=== PATIENT | female | born 1965 | race Caucasian/White ===

== ENCOUNTER 2016-06-16 22:09 | Emergency (ER) | payer MEDICAID ==
[~2016-06-16] VITALS: Ht 154.9 cm; Wt 54.4 kg
[~2016-06-16 22:09] MED LIST: OMEP40CA37 PO
[2016-06-16] MEDS ORDERED: ACETAMINOPHEN ES 500 MG TABLET ONE (23:29)
[2016-06-16 23:43] VITALS: BP 121/66
== END 2016-06-16 23:44 | disposition home or self-care (01) ==
LOC: ER 22:11
DX: S46.812A Strain of other muscles, fascia and tendons at shoulder and upper arm level, left arm, initial encounter (principal); S46.811A Strain of other muscles, fascia and tendons at shoulder and upper arm level, right arm, initial encounter; S16.1XXA Strain of muscle, fascia and tendon at neck level, initial encounter; K21.9 Gastro-esophageal reflux disease without esophagitis; F32.9 Major depressive disorder, single episode, unspecified; F41.9 Anxiety disorder, unspecified; Z90.710 Acquired absence of both cervix and uterus; V49.60XA Unspecified car occupant injured in collision with unspecified motor vehicles in traffic accident, initial encounter; Y93.89 Activity, other specified; Y92.413 State road as the place of occurrence of the external cause; Y99.8 Other external cause status
CPT/HCPCS: 99283; A4606; Z7610

== ENCOUNTER 2016-12-06 22:21 | Emergency (ER) | payer BC, MEDICAID ==
[~2016-12-06] VITALS: Ht 162.6 cm; Wt 54.4 kg
--- NOTE | 2016-12-06 22:40 | NUR ---
PT PRESENTED TO THE ER WITH A C/O ABD PAIN X 1 WK. PT STATED THAT SHE WENT TO URGENT CARE A WEEK AGO RE: ABD PAIN. PT REC'D MACROBID 100 MG AND HAS BEEN TAKING THEM FOR 6 DAYS WITH NO CHANGE. PT STATED THAT HER ABD PAIN IS WORSE. URINE SAMPLE OBTAINED AND SENT TO LAB. PT AMBULATED TO BED #6 WITH A STEADY GAIT.
[2016-12-06] MEDS ORDERED: IV NS 0.9% 500 ML IV ONE (22:56)
[2016-12-06] MEDS ORDERED: IV SET PRIMARY 1 EA INFUS.SET MC ONE (22:56)
[2016-12-06] MEDS ORDERED: ONDANSETRON HCL/PF 4 MG/2 ML VIAL IVP ONE (23:00)
[2016-12-06] MEDS ORDERED: MORPHINE SULFATE INJ 2 MG/ML DISP.SYRIN IV ONE (23:00)
[2016-12-06] MEDS ORDERED: IV NS 0.9% 500 ML BAG IV ONE (23:00)
--- NOTE | 2016-12-06 23:00 | NUR ---
BLOOD WAS DRAWN AND SENT TO LAB.
--- NOTE | 2016-12-06 23:03 | NUR ---
PT REFUSED MORPHINE AND ZOFRAN.
[2016-12-06 23:04] LABS: BASOPHILS % (AUTO) 0.3 % (0.0-2.0); EOSINOPHILS # (AUTO) 0.2 /CMM (0.0-0.7); EOSINOPHILS % (AUTO) 2.8 % (0.0-6.0); HEMATOCRIT 36 % (33-45); HEMOGLOBIN 12.4 g/dL (11.5-14.8); LYMPHOCYTES # (AUTO) 2.4 /CMM (0.8-4.8); LYMPHOCYTES % (AUTO) 26.8 % (20.0-44.0); MEAN CORPUSCULAR HEMOGLOBIN 30 PG (26.0-33.0); MEAN CORPUSCULAR HGB CONC 34 g/dl (31.0-36.0); MEAN CORPUSCULAR VOLUME 89 fL (82-100); MONOCYTES # (AUTO) 0.7 /CMM (0.1-1.30); MONOCYTES % (AUTO) 8.3 % (2.0-12.0); NEUTROPHILS # (AUTO) 5.5 /CMM (1.8-8.9); NEUTROPHILS % (AUTO) 61.8 % (43.0-81.0); PLATELET COUNT (AUTO) 279 /CMM (150-450); RDW COEFFICIENT OF VARIATION 12.8 (11.5-15.0); RED BLOOD CELL COUNT(AUTO) 4.11 MIL/uL (4.0-5.2); WHITE BLOOD COUNT (AUTO) 8.9 K/uL (4.3-11.0)
[2016-12-06 23:10] LABS: APPEARANCE,URINE CLEAR (CLEAR); BILIRUBIN,URINE NEGATIVE (NEGATIVE); BLOOD, URINE TRACE Ery/uL (NEGATIVE); COLOR,URINE YELLOW (YELLOW); KETONES,URINE NEGATIVE (NEGATIVE); LEUKOCYTE ESTERASE ,URINE 1+ (NEGATIVE); NITRITE, URINE NEGATIVE (NEGATIVE); PH,URINE 5.5 (5.0-8.0); PROTEIN,URINE NEGATIVE (NEGATIVE); UGLUCOSE NEGATIVE (NEGATIVE); UROBILINOGEN,URINE 0.2 EU/dL (0.2)
[2016-12-06 23:17] LABS: POTASSIUM 3.8 mmol/L (3.5-5.1)
--- NOTE | 2016-12-06 23:22 | NUR ---
PT IS GOING TO [facility]
[2016-12-06 23:23] LABS: ALBUMIN 3.6 g/dL (3.4-5.0); BILIRUBIN,TOTAL 0.2 mg/dL (0.2-1.0); TOTAL PROTEIN, SERUM 7.6 g/dL (6.4-8.2)
--- NOTE | 2016-12-06 23:32 | NUR ---
PT RETURNED FROM CT.
[2016-12-06 23:35] LABS: RBC,URINE 0-2 /HPF (0-2)
[2016-12-06 23:36] LABS: BACTERIA,URINE 1+ /HPF (None Seen); SQUAMOUS EPITHELIAL CELL,UR Few /HPF (None Seen)
[2016-12-07] MEDS ORDERED: METRONIDAZOLE 500 MG TABLET ONE (00:19)
[2016-12-07] MEDS ORDERED: CIPROFLOXACIN HCL 500 MG TABLET ONE (00:19)
[2016-12-07] MEDS ORDERED: CIPROFLOXACIN HCL 500 MG TABLET PO ONE (00:30)
[2016-12-07] MEDS ORDERED: METRONIDAZOLE 500 MG TABLET PO ONE (00:30)
--- NOTE | 2016-12-07 00:33 | NUR ---
IV removed. Catheter intact and site benign. Pressure and 4x4 applied to site. No bleeding noted.Patient discharged to home in stable condition. Written and verbal after care instructions given. Patient verbalizes understanding of instruction AND RX. PT AMBULATED OUT WITH A STEADY GAIT. VSS.
[2016-12-07 00:34] VITALS: BP 127/59
== END 2016-12-07 00:35 | disposition home or self-care (01) ==
LOC: ER 22:24
DX: N39.0 Urinary tract infection, site not specified (principal); F32.9 Major depressive disorder, single episode, unspecified; F41.9 Anxiety disorder, unspecified; K21.9 Gastro-esophageal reflux disease without esophagitis; K57.30 Diverticulosis of large intestine without perforation or abscess without bleeding; Z87.440 Personal history of urinary (tract) infections; Z90.710 Acquired absence of both cervix and uterus
CPT/HCPCS: 36415; 72128; 74176; 80048; 80076; 81001; 83690; 85025; 87086; 99285; A4606; J7040; Z7610; 81000-TC

== ENCOUNTER 2017-09-15 11:08 | Emergency (ER) | payer MEDICAID, OTHER ==
[~2017-09-15] VITALS: Ht 154.9 cm; Wt 65.8 kg
[2017-09-15 11:13] VITALS: BP 133/62
[2017-09-15 11:59] LABS: APPEARANCE,URINE Clear (CLEAR); BILIRUBIN,URINE Negative (NEGATIVE); BLOOD, URINE Moderate Ery/uL (NEGATIVE); COLOR,URINE Yellow (YELLOW); KETONES,URINE Negative (NEGATIVE); LEUKOCYTE ESTERASE ,URINE Moderate (NEGATIVE); NITRITE, URINE Negative (NEGATIVE); PROTEIN,URINE Negative (NEGATIVE); UGLUCOSE Negative (NEGATIVE); UROBILINOGEN,URINE 0.2 EU/dL (0.2)
[2017-09-15 12:08] LABS: BACTERIA,URINE Many /HPF (None Seen); SQUAMOUS EPITHELIAL CELL,UR Few /HPF (None Seen); WBC,URINE 21-50 /HPF (0-3)
== END 2017-09-15 12:16 | disposition home or self-care (01) ==
LOC: ER 11:14
DX: L03.113 Cellulitis of right upper limb (principal); N39.0 Urinary tract infection, site not specified; F32.9 Major depressive disorder, single episode, unspecified; F41.9 Anxiety disorder, unspecified; K21.9 Gastro-esophageal reflux disease without esophagitis; Z90.710 Acquired absence of both cervix and uterus
CPT/HCPCS: 81001; 87086; 99284; A4606; Z7610; 81000-TC

== ENCOUNTER 2019-02-01 11:32 | Emergency (ER) | payer MEDICAID ==
[~2019-02-01] VITALS: Ht 154.9 cm; Wt 55.8 kg
--- NOTE | 2019-02-01 12:10 | NUR ---
PATIENT ARRIVED AT UNIT AMBULATORY. A/O X 4, WITH REPORT OF LEFT SIDED FACIAL NUMBNESS, REPORTS HAVING FACE LIFT 3 MOS AGO. ALSO C/O L RIB AREA PAIN, NON TRAUMATIC. NO ACUTE DISTRESS NOTED AT THIS TIME. RESTING ON BED. WILL CONTINUE TO MONITOR
[2019-02-01 14:17] VITALS: BP 120/74
--- NOTE | 2019-02-01 14:17 | NUR ---
Patient discharged to home in stable condition. Written and verbal after care instructions given. Written prescription provided to patient. Patient verbalizes understanding of instruction.
== END 2019-02-01 14:18 | disposition home or self-care (01) ==
LOC: ER 11:32
DX: R07.81 Pleurodynia (principal); R20.0 Anesthesia of skin; F41.9 Anxiety disorder, unspecified; K21.9 Gastro-esophageal reflux disease without esophagitis; Z98.890 Other specified postprocedural states
CPT/HCPCS: 71100-TC